=== PATIENT | male | born 1955 | race Caucasian/White ===

== ENCOUNTER 2018-02-27 10:15 | Inpatient (IN) ==
[2018-02-27] MEDS ORDERED: METOPROLOL TARTRATE 5 MG/5 ML VIAL IV STA (10:39)
[2018-02-27] MEDS ORDERED: ONDANSETRON 4 MG/2 ML VIAL IV PRN (10:39)
[2018-02-27] MEDS ORDERED: MORPHINE 4 MG/1 ML VIAL IV PRN ×2 (10:39→13:36)
[2018-02-27] MEDS ORDERED: ASPIRIN 325 MG TABLET PO STA (10:39)
[2018-02-27 11:09] LABS: Basophils % 0.5 % (0.0-0.8); Eosinophils # 0.2 10*3/uL (0.0-0.87); Hematocrit 46.4 VOL% (42.0-52.0); Hemoglobin 15.8 GM/DL (14.0-18.0); Immature Granulocytes % 0.6 %; Immature Granulocytes Absolute 0.05 #; Lymphocytes # 1.8 10*3/uL (1.4-4.0); Lymphocytes % 22.1 % (21.2-54.2); Mean Corpuscular HGB Conc 34.1 GM/DL (32-36); Mean Corpuscular Hemoglobin 33 PG (27-34); Mean Corpuscular Volume 96.7 FL (87-102); Mean Platelet Volume 9.5 FL (9.6-12.0); Monocytes # 0.5 10*3/uL (0.11-0.8); Monocytes % 5.7 % (1.7-12.7); Neutrophils # 5.6 10*3/uL (1.4-7.4); Neutrophils % 69.1 % (38.7-73.9); Platelet Count 286 T/CUMM (130-400); Red Cell Distribution Width 12.8 % (9.3-17.3); White Blood Count 8.1 T/CUMM (4-12)
[2018-02-27 11:17] LABS: PT Patient Result 10.4 SECS; Partial Thromboplastin Time 27.2 SECS (0-40)
[2018-02-27 11:20] LABS: Apearance,Urine CLEAR (Clear); Bilirubin,Urine Negative (Negative); Blood, Urine Negative (Negative); Glucose,Urine (UA) Negative (Negative); Ketones,Urine Negative (Negative); Nitrite,Urine Negative (Negative); Protein,Urine Negative; RBC,Urine <1 /HPF (0-4); Urine Color Straw (Yellow); Urine Specific Gravity 1.003 (1.001-1.035); Urine Urobilinogen < 2.0 EU/DL (0.2-1.0); WBC,Urine <1 /HPF (0-6)
[2018-02-27 11:28] LABS: Barbiturates Screen,Urine Negative (Negative); Benzodiazepines Screen,Urine Negative (Negative); Cannabinoid Screen,Urine Negative (Negative); Opiate Screen,Urine Negative (Negative); Phencyclidine Screen,Urine Negative (Negative)
[2018-02-27 11:40] LABS: Albumin 3.9 G/DL (3.4-5.0); Bilirubin,Total 0.8 MG/DL (0.2-1.0); Calcium 9.1 MG/DL (8.5-10.1); Osmolality,Calculated 280.3 MOS/KG (273-304); Potassium 4.3 MMOL/L (3.5-5.1); Total Protein 7.3 G/DL (6.4-8.3)
[2018-02-27] MEDS ORDERED: niCARdipine 25 MG/10 ML VIAL IV ONE (12:57)
[2018-02-27] MEDS: niCARdipine INJ 25 MG in SODIUM CHLORIDE 0.9% 240 ML IV PRN ×2 (13:04→18:31)
[2018-02-27] MEDS ORDERED: ACETAMINOPHEN 325 MG TABLET PO PRN (13:36)
[2018-02-27] MEDS ORDERED: DOCUSATE SODIUM 100 MG CAPSULE PO PRN (13:36)
[2018-02-27] MEDS ORDERED: diphenhydrAMINE CAP 25 MG CAPSULE PO PRN (13:36)
[2018-02-27] MEDS ORDERED: CARVEDILOL 3.125 MG TABLET ONE (14:38)
[2018-02-27] MEDS: amLODIPine 5 MG TABLET PO SCH (14:40)
[2018-02-27] MEDS: hydroCHLOROthiazide 25 MG TABLET PO SCH (14:41)
[2018-02-27] MEDS: PANTOPRAZOLE 40 MG TABLET PO SCH (14:41)
[2018-02-27] MEDS: CARVEDILOL 12.5 MG TABLET PO SCH ×2 (14:42→20:40)
[2018-02-27] MEDS: ENOXAPARIN 40 MG/0.4 ML SYRINGE SUBCUT SCH (14:44)
[2018-02-27] MEDS: ASPIRIN EC 81 MG TABLET PO SCH (15:26)
[2018-02-28 05:44] LABS: Risk Ratio 4.67; Thyroid Stimulating Hormone 3.68 uIU/ml (0.358-3.74); VLDL CHOLESTEROL 31.8 MG/DL
[2018-02-28] MEDS: CARVEDILOL 12.5 MG TABLET PO SCH ×2 (08:24→20:36)
[2018-02-28] MEDS: hydroCHLOROthiazide 25 MG TABLET PO SCH (08:24)
[2018-02-28] MEDS: amLODIPine 5 MG TABLET PO SCH (08:24)
[2018-02-28] MEDS: PANTOPRAZOLE 40 MG TABLET PO SCH (08:24)
[2018-02-28] MEDS: ASPIRIN EC 81 MG TABLET PO SCH (08:25)
[2018-02-28] MEDS: ENOXAPARIN 40 MG/0.4 ML SYRINGE SUBCUT SCH (14:06)
[2018-03-01 05:56] LABS: Calcium 8.9 MG/DL (8.5-10.1); Osmolality,Calculated 278.5 MOS/KG (273-304); Potassium 3.4 MMOL/L (3.5-5.1)
[2018-03-01] MEDS ORDERED: POTASSIUM CHLORIDE 20 MEQ TABLET PO ONE (09:09)
[2018-03-01] MEDS ORDERED: SODIUM CHLORIDE 0.9% 500 ML IV ONE (09:10)
[2018-03-01] MEDS: amLODIPine 5 MG TABLET PO SCH (09:56)
[2018-03-01] MEDS: hydroCHLOROthiazide 25 MG TABLET PO SCH (09:57)
[2018-03-01] MEDS: PANTOPRAZOLE 40 MG TABLET PO SCH (09:57)
[2018-03-01] MEDS: ASPIRIN EC 81 MG TABLET PO SCH (09:57)
[2018-03-01] MEDS: ENOXAPARIN 40 MG/0.4 ML SYRINGE SUBCUT SCH (09:57)
[2018-03-01] MEDS: CARVEDILOL 12.5 MG TABLET PO SCH (09:57)
[2018-03-01] MEDS ORDERED: OMEGA 3 ACID ETHYL ESTERS 1 GM CAPSULE PO SCH (10:00)
[2018-03-01] MEDS ORDERED: ROSUVASTATIN 20 MG TABLET PO SCH (10:00)
[2018-03-01 11:44] VITALS: BP 143/74
[2018-03-02] MEDS ORDERED: POTASSIUM CHLORIDE 20 MEQ TABLET PO SCH (11:00)
== END 2018-03-01 13:35 | disposition home or self-care (01) | DRG 305 ==
LOC: N.ED 10:15 → N.EDINP 13:13 → SUATTDRO 13:13 → N.CC 17:12 → N.2E 02-28 15:38
PROVIDERS: ADMIT Internal Medicine; ATTEND Internal Medicine